=== PATIENT | female | born 1935 | race Caucasian/White ===

== ENCOUNTER 2024-07-14 11:00 | Day surgery (SDC) | payer MEDICARE, MEDICAID ==
[~2024-07-14] VITALS: Ht 167.6 cm; Wt 82.3 kg
[~2024-07-14 11:00] MED LIST: AMLO2.5T5 PO; ATOR10TA70 PO; CARV6.2553 PO; TAMO20TA4 PO
[2024-07-14 11:37] VITALS: BP 132/79; PULSE 69; RESP 16
[2024-07-14] MEDS ORDERED: propofol inj 20 ML IV ONE (12:19)
[2024-07-14 12:25] VITALS: BP 119/71; PULSE 68; RESP 16; O2SAT 95
[2024-07-14 12:35] VITALS: BP 101/69; PULSE 67; RESP 15; O2SAT 98
[2024-07-14 12:45] VITALS: BP 115/65; PULSE 66; RESP 17; O2SAT 98
[2024-07-14 12:55] VITALS: BP 115/62; PULSE 65; RESP 16; O2SAT 99
== END 2024-07-14 13:00 | disposition home or self-care (01) ==
LOC: GI LAB 11:00
PROVIDERS: ATTEND Internal Medicine Gastroenterology
DX: K52.9 Noninfective gastroenteritis and colitis, unspecified (principal); K57.30 Diverticulosis of large intestine without perforation or abscess without bleeding; K64.8 Other hemorrhoids; I10 Essential (primary) hypertension
CPT/HCPCS: 45380; J2704; J7030; Z7512